=== PATIENT | male | born 1990 | race Hispanic/Latino ===

== ENCOUNTER 2020-11-20 10:56 | Day surgery (SDC) | payer BC, MEDICAID ==
[2020-11-20] VITALS (10 sets, daily range): BP systolic 107–129; BP diastolic 59–76
[2020-11-20 11:22] LABS: BASOPHILS % (AUTO) 0.3 % (0.0-5.0); EOSINOPHILS % (AUTO) 0.5 % (0.0-8.0); HEMATOCRIT 40.3 % (42-54); LYMPHOCYTES % (AUTO) 27.9 % (21.0-51.0); MEAN CORPUSCULAR HEMOGLOBIN 27.6 pg (27.0-33.0); MEAN CORPUSCULAR VOLUME 86.3 fL (79-99); MONOCYTES % (AUTO) 11.2 % (3.0-13.0); NEUTROPHILS % (AUTO) 59.8 % (40.0-77.0); PLATELET COUNT (AUTO) 311 K/uL (130-400); RED BLOOD CELL COUNT(AUTO) 4.67 MIL/uL (4.50-6.20); RED CELL DISTRIBUTION WIDTH 15.9 % (11.0-15.5); WHITE BLOOD COUNT (AUTO) 10.3 K/uL (4.8-10.8)
[2020-11-20 11:30] LABS: CREATININE 0.6 mg/dL (0.5-1.5); POTASSIUM 3.9 mmol/L (3.5-5.1)
[2020-11-20 11:33] LABS: INR 1.11 (0.85-1.15)
[2020-11-20] MEDS ORDERED: PROPOFOL 10 MG/ML 20ML VIAL IV ONE (11:34)
== END 2020-11-20 13:10 | disposition home or self-care (01) ==
LOC: DAH 10:56 → ENDO 10:56
PROVIDERS: ATTEND Internal Medicine Gastroenterology
DX: R13.12 Dysphagia, oropharyngeal phase (principal); Z20.822 Contact with and (suspected) exposure to COVID-19; K21.00 Gastro-esophageal reflux disease with esophagitis, without bleeding; K25.4 Chronic or unspecified gastric ulcer with hemorrhage; K92.1 Melena; R63.4 Abnormal weight loss; R19.4 Change in bowel habit; Z79.01 Long term (current) use of anticoagulants; Z83.3 Family history of diabetes mellitus; Z82.49 Family history of ischemic heart disease and other diseases of the circulatory system; Z80.49 Family history of malignant neoplasm of other genital organs; Z80.0 Family history of malignant neoplasm of digestive organs; Z83.49 Family history of other endocrine, nutritional and metabolic diseases; Z79.899 Other long term (current) drug therapy
CPT/HCPCS: 36415; 43246; 43255; 80048; 85025; 85610; 87426; A4215; A4221; A4222; A4223; A4606; A4620; A4657 ×2; A4663; J2704

== ENCOUNTER 2021-03-19 15:52 | Inpatient (IN) | payer BC, MEDICAID ==
[~2021-03-19] VITALS: Ht 167.6 cm; Wt 44.7 kg
[2021-03-19 16:08] LABS: BASOPHILS % (AUTO) 0.1 % (0.0-5.0); HEMATOCRIT 39.2 % (42-54); LYMPHOCYTES % (AUTO) 2.5 % (21.0-51.0); MEAN CORPUSCULAR HGB CONC 31.6 g/dL (32.0-36.0); MEAN CORPUSCULAR VOLUME 88.5 fL (79-99); MONOCYTES % (AUTO) 7.4 % (3.0-13.0); NEUTROPHILS % (AUTO) 89.5 % (40.0-77.0); PLATELET COUNT (AUTO) 349 K/uL (130-400); RED BLOOD CELL COUNT(AUTO) 4.43 MIL/uL (4.50-6.20); RED CELL DISTRIBUTION WIDTH 16.3 % (11.0-15.5); WHITE BLOOD COUNT (AUTO) 27.3 K/uL (4.8-10.8)
[2021-03-19 16:12] VITALS: BP 102/81
[2021-03-19 16:18] LABS: CREATININE 0.5 mg/dL (0.5-1.5)
[2021-03-19 16:23] LABS: ALBUMIN 2.9 g/dL (3.5-5.0); BILIRUBIN,TOTAL 0.6 mg/dL (0.2-1.0); TOTAL PROTEIN, SERUM 8.2 g/dL (6.0-8.3)
[2021-03-19 16:26] LABS: INR 1.23 (0.85-1.15); PROTHROMBIN TIME 13.2 SEC (9.6-11.6)
[2021-03-19 16:57] LABS: BILIRUBIN,URINE Negative (NEGATIVE); GLUCOSE, URINE (UA) Negative (NEGATIVE); KETONES,URINE Trace mg/dL (NEGATIVE); LEUKOCYTE ESTERASE ,URINE Small (NEGATIVE); NITRATE,URINE Negative (NEGATIVE); OCCULT BLOOD,URINE Negative (NEGATIVE); PH,URINE 7.5 (5.0-8.0); PROTEIN,URINE Trace mg/dL (NEGATIVE)
[2021-03-19 16:59] LABS: APPEARANCE,URINE CLEAR (CLEAR); COLOR,URINE YELLOW (YELLOW)
[2021-03-19] MEDS ORDERED: 0.9%NACL 1000ML 1,914 ML IV ONE (17:00)
[2021-03-19] MEDS ORDERED: ZOSYN 3.375GM +NS 50ML IV ONE (17:00)
[2021-03-19] MEDS ORDERED: 0.9%NACL 50ML IV ONE (17:00)
[2021-03-19] MEDS ORDERED: KETOROLAC 30MG VIAL (30MG/ML) IV ONE (17:00)
[2021-03-19 17:09] LABS: BACTERIA,URINE Few /HPF (None Seen); RBC,URINE None Seen /HPF (0-1)
[2021-03-19 18:01] VITALS: BP 138/75
[2021-03-19] MEDS ORDERED: VANCOMYCIN PROTOCOL PER PHARMACY IV SCH (19:15)
[2021-03-19] MEDS ORDERED: VANCOMYCIN KIT 1 GM/250 ML IV.KIT IV ONE (19:30)
[2021-03-19] MEDS ORDERED: 0.9% NACL 250ML 250 ML IV ONE (19:30)
[2021-03-19] MEDS ORDERED: ZOSYN 3.375GM+NS 50ML 50 ML IV ONE (19:46)
[2021-03-19] MEDS: ZOSYN 3.375GM +NS 50ML IV SCH (19:55)
[2021-03-19] MEDS: 0.9%NACL 50ML 50 ML IV SCH (19:56)
[2021-03-19] MEDS ORDERED: ACETAMINOPHEN 325 MG TAB PO PRN (20:45)
[2021-03-19] MEDS ORDERED: ONDANSETRON 4MG INJ IV PRN (20:45)
[2021-03-19] MEDS ORDERED: GUAIFENESIN-DM 200/20 MG 10 ML PO PRN (20:45)
[2021-03-19] MEDS ORDERED: LACTULOSE 20 GM/30 ML UDCUP PO PRN (20:45)
[2021-03-19 20:53] VITALS: BP 93/54
[2021-03-19] MEDS: FAMOTIDINE 20MG VIAL IV SCH (21:07)
[2021-03-19] MEDS ORDERED: DIPHENHYDRAMINE HCL 25 MG CAPSULE PEG PRN (22:15)
[2021-03-19] MEDS ORDERED: METO5 PEG (22:32)
[2021-03-19] MEDS ORDERED: PROP50TA3 PEG (22:32)
[2021-03-19] MEDS ORDERED: HYDR10SY9 PEG (22:32)
[2021-03-19] MEDS ORDERED: IPRA3AMP24 IH (22:32)
[2021-03-19] MEDS ORDERED: DIPH25TA51 PEG (22:32)
[2021-03-19] MEDS ORDERED: BUDE0.255 IH (22:32)
[2021-03-19] MEDS ORDERED: ACET1030H PO (22:32)
[2021-03-19] MEDS ORDERED: MONT10TA21 PEG (22:32)
[2021-03-19] MEDS ORDERED: ALBU2.5V2 IH (22:32)
[2021-03-19] MEDS ORDERED: VALP250S5 PEG (22:32)
[2021-03-19 22:48] VITALS: BP 149/76
[2021-03-20] VITALS (7 sets, daily range): BP systolic 101–129; BP diastolic 45–87
[2021-03-20] MEDS: IPRATROPIUM/ALBUTEROL SULFATE 3 ML SOLUTION IH SCH ×4 (00:10→19:15)
[2021-03-20] MEDS: 0.9%NACL 100ML 100 ML IV SCH ×2 (02:59→11:06)
[2021-03-20] MEDS: VANCOMYCIN 500MG+NS 100ML IVPB IV SCH ×3 (02:59→17:46)
[2021-03-20] MEDS: ZOSYN 3.375GM +NS 50ML IV SCH ×3 (05:18→20:11)
[2021-03-20] MEDS: 0.9%NACL 50ML 50 ML IV SCH ×3 (05:18→20:11)
[2021-03-20] MEDS: BUDESONIDE 0.25 MG/2 ML INH IH SCH (07:36)
[2021-03-20 07:44] LABS: HEMATOCRIT 34.1 % (42-54); MEAN CORPUSCULAR HEMOGLOBIN 27.6 pg (27.0-33.0); MEAN CORPUSCULAR HGB CONC 30.8 g/dL (32.0-36.0); MEAN CORPUSCULAR VOLUME 89.7 fL (79-99); PLATELET COUNT (AUTO) 268 K/uL (130-400); RED CELL DISTRIBUTION WIDTH 16.2 % (11.0-15.5); WHITE BLOOD COUNT (AUTO) 14.2 K/uL (4.8-10.8)
[2021-03-20 07:58] LABS: CREATININE 0.5 mg/dL (0.5-1.5); POTASSIUM 3.7 mmol/L (3.5-5.1)
[2021-03-20] MEDS: ENOXAPARIN SODIUM 40 MG/0.4 ML SYRINGE SQ SCH (08:42)
[2021-03-20] MEDS: FAMOTIDINE 20MG VIAL IV SCH ×2 (08:43→20:11)
[2021-03-20] MEDS: METOCLOPRAMIDE 5 MG TABLET PEG SCH ×2 (08:43→20:11)
[2021-03-20] MEDS: MUPIROCIN OINTMENT 22 GM TUBE TP SCH ×2 (08:43→21:01)
[2021-03-20] MEDS: VALPROATE SOD 250 MG/5 ML (PO) PEG SCH ×2 (08:43→20:11)
[2021-03-20] MEDS: PROPYLTHIOURACIL 50 MG TABLET PEG SCH (08:46)
[2021-03-20] MEDS: MONTELUKAST SODIUM 10 MG TAB PEG SCH (20:11)
[2021-03-21 00:54] VITALS: BP 122/70
[2021-03-21] MEDS: IPRATROPIUM/ALBUTEROL SULFATE 3 ML SOLUTION IH SCH ×5 (01:03→23:31)
[2021-03-21] MEDS: 0.9%NACL 100ML 100 ML IV SCH ×2 (01:36→10:33)
[2021-03-21] MEDS: VANCOMYCIN 500MG+NS 100ML IVPB IV SCH ×2 (01:36→10:30)
[2021-03-21] MEDS ORDERED: 0.9%NACL 1000ML 1,000 ML IV SCH (01:45)
[2021-03-21 04:06] VITALS: BP 136/58
[2021-03-21] MEDS: 0.9%NACL 50ML 50 ML IV SCH ×3 (04:07→22:59)
[2021-03-21] MEDS: ZOSYN 3.375GM +NS 50ML IV SCH ×3 (04:07→22:59)
[2021-03-21] MEDS: MORPHINE 2 MG SYG IV PRN ×2 (04:08→21:29)
[2021-03-21 06:41] LABS: % IRON SATURATION 9.3 % (30-44); BASOPHILS % (AUTO) 0.1 % (0.0-5.0); EOSINOPHILS % (AUTO) 0.7 % (0.0-8.0); HEMATOCRIT 36.1 % (42-54); LYMPHOCYTES % (AUTO) 17.1 % (21.0-51.0); MEAN CORPUSCULAR HEMOGLOBIN 27.3 pg (27.0-33.0); MEAN CORPUSCULAR HGB CONC 31.6 g/dL (32.0-36.0); MEAN CORPUSCULAR VOLUME 86.4 fL (79-99); MONOCYTES % (AUTO) 13.1 % (3.0-13.0); NEUTROPHILS % (AUTO) 68.6 % (40.0-77.0); PLATELET COUNT (AUTO) 306 K/uL (130-400); RED BLOOD CELL COUNT(AUTO) 4.18 MIL/uL (4.50-6.20); RED CELL DISTRIBUTION WIDTH 15.8 % (11.0-15.5); WHITE BLOOD COUNT (AUTO) 9.6 K/uL (4.8-10.8)
[2021-03-21 07:07] LABS: CREATININE 0.5 mg/dL (0.5-1.5); MAGNESIUM 1.8 mg/dL (1.80-2.40); PHOSPHORUS 3.3 mg/dL (2.5-4.9); POTASSIUM 3.5 mmol/L (3.5-5.1); THYROID STIMULATING HORMONE 2.21 uIU/mL (0.36-3.74)
[2021-03-21 07:30] VITALS: BP 109/66
[2021-03-21] MEDS: PROPYLTHIOURACIL 50 MG TABLET PEG SCH (08:52)
[2021-03-21] MEDS: METOCLOPRAMIDE 5 MG TABLET PEG SCH ×2 (08:57→21:21)
[2021-03-21] MEDS: ENOXAPARIN SODIUM 40 MG/0.4 ML SYRINGE SQ SCH (08:58)
[2021-03-21] MEDS: VALPROATE SOD 250 MG/5 ML (PO) PEG SCH ×2 (08:59→21:21)
[2021-03-21] MEDS: MUPIROCIN OINTMENT 22 GM TUBE TP SCH ×2 (08:59→21:22)
[2021-03-21] MEDS: FAMOTIDINE 20MG VIAL IV SCH ×2 (09:00→21:21)
[2021-03-21] MEDS ORDERED: COMPOUND IV MISC 1 EACH IVSOLN MISC PRN (10:15)
[2021-03-21 11:00] VITALS: BP 115/72
[2021-03-21] MEDS: IRON SUCROSE COMPLEX 300 MG in 0.9%NACL 50ML 50 ML IV SCH (12:07)
[2021-03-21 16:00] VITALS: BP 118/79
[2021-03-21 19:00] VITALS: BP 124/77
[2021-03-21] MEDS: 0.9% NACL 250ML 250 ML IV SCH (21:21)
[2021-03-21] MEDS: MONTELUKAST SODIUM 10 MG TAB PEG SCH (21:21)
[2021-03-21] MEDS: VANCOMYCIN KIT 1 GM/250 ML IV.KIT IV SCH (21:21)
[2021-03-21] MEDS: BUDESONIDE 0.25 MG/2 ML INH IH SCH (23:36)
[2021-03-22] VITALS: BP 112/70
[2021-03-22 04:00] VITALS: BP 118/67
[2021-03-22] MEDS: MORPHINE 2 MG SYG IV PRN (04:05)
[2021-03-22] MEDS: 0.9%NACL 50ML 50 ML IV SCH (05:00)
[2021-03-22 05:12] LABS: BASOPHILS % (AUTO) 0.2 % (0.0-5.0); EOSINOPHILS % (AUTO) 0.1 % (0.0-8.0); HEMATOCRIT 40.8 % (42-54); LYMPHOCYTES % (AUTO) 17.7 % (21.0-51.0); MEAN CORPUSCULAR HEMOGLOBIN 27.8 pg (27.0-33.0); MEAN CORPUSCULAR HGB CONC 31.6 g/dL (32.0-36.0); MEAN CORPUSCULAR VOLUME 87.9 fL (79-99); MONOCYTES % (AUTO) 12.8 % (3.0-13.0); NEUTROPHILS % (AUTO) 68.8 % (40.0-77.0); PLATELET COUNT (AUTO) 283 K/uL (130-400); RED BLOOD CELL COUNT(AUTO) 4.64 MIL/uL (4.50-6.20); RED CELL DISTRIBUTION WIDTH 16.1 % (11.0-15.5); WHITE BLOOD COUNT (AUTO) 9.3 K/uL (4.8-10.8)
[2021-03-22 05:26] LABS: CREATININE 0.5 mg/dL (0.5-1.5); POTASSIUM 4.1 mmol/L (3.5-5.1)
[2021-03-22] MEDS: ZOSYN 3.375GM +NS 50ML IV SCH (06:01)
[2021-03-22] MEDS: IPRATROPIUM/ALBUTEROL SULFATE 3 ML SOLUTION IH SCH ×2 (06:48→11:43)
[2021-03-22 07:30] VITALS: BP 128/59
[2021-03-22] MEDS: 0.9% NACL 250ML 250 ML IV SCH (08:00)
[2021-03-22] MEDS: VANCOMYCIN KIT 1 GM/250 ML IV.KIT IV SCH (08:00)
[2021-03-22] MEDS ORDERED: LEVO250S3 PO (10:39)
[2021-03-22 11:00] VITALS: BP 110/64
[2021-03-22] MEDS: VALPROATE SOD 250 MG/5 ML (PO) PEG SCH (11:39)
[2021-03-22] MEDS: ENOXAPARIN SODIUM 40 MG/0.4 ML SYRINGE SQ SCH (11:40)
[2021-03-22] MEDS: PROPYLTHIOURACIL 50 MG TABLET PEG SCH (11:40)
[2021-03-22] MEDS: MUPIROCIN OINTMENT 22 GM TUBE TP SCH (11:41)
[2021-03-22] MEDS: METOCLOPRAMIDE 5 MG TABLET PEG SCH (11:41)
[2021-03-22] MEDS: FAMOTIDINE 20MG VIAL IV SCH (11:42)
[2021-03-22] MEDS: IRON SUCROSE COMPLEX 300 MG in 0.9%NACL 50ML 50 ML IV SCH (11:42)
[2021-10-04] MEDS ORDERED: TRYPSIN TP (16:15)
[2021-10-04] MEDS ORDERED: BACL5TAB PO (16:15)
[2021-10-04] MEDS ORDERED: BALSAM PERU TP (16:15)
[2021-10-04] MEDS ORDERED: CASTOR OIL TP (16:15)
[2021-10-04] MEDS ORDERED: METO50TA9 PO (16:15)
[2021-10-04] MEDS ORDERED: LEVE500S7 PEG (16:15)
== END 2021-03-22 16:00 | disposition home or self-care (01) | DRG 871 ==
LOC: EDH 15:52 → EDHIP 18:52 → 3DH 03-20 04:01
PROVIDERS: ADMIT Internal Medicine; ATTEND Internal Medicine
DX: A41.50 Gram-negative sepsis, unspecified (principal); J18.9 Pneumonia, unspecified organism; J69.0 Pneumonitis due to inhalation of food and vomit; G93.1 Anoxic brain damage, not elsewhere classified; J96.11 Chronic respiratory failure with hypoxia; Z68.1 Body mass index [BMI] 19.9 or less, adult; E44.0 Moderate protein-calorie malnutrition; D50.9 Iron deficiency anemia, unspecified; E03.9 Hypothyroidism, unspecified; R13.12 Dysphagia, oropharyngeal phase; L89.129 Pressure ulcer of left upper back, unspecified stage; Z20.822 Contact with and (suspected) exposure to COVID-19; Z74.01 Bed confinement status; Z87.01 Personal history of pneumonia (recurrent); Z93.0 Tracheostomy status; Z93.1 Gastrostomy status; Z86.69 Personal history of other diseases of the nervous system and sense organs
CPT/HCPCS: 36415; 71045; 73060; 80048; 80053; 80202; 81001; 82607; 82728; 82746; 83540; 83550; 83605; 83735; 84100; 84145; 84443; 85025; 85027; 85045; 85610; 87040; 87070; 87071; 87076; 87077; 87088; 87186; 87205; 87635; 87804; 87880; 93005; 94640; 94664; C9803; G0378; J1650; J1756; J1885; J2543; J3370; J3490; J7030; J7050

== ENCOUNTER 2021-06-24 13:19 | Inpatient (IN) | payer BC, MEDICAID ==
[~2021-06-24] VITALS: Ht 188 cm; Wt 58.0 kg
[~2021-06-24 13:19] MED LIST: ACET1030H PO; ALBU2.5V2 IH; BUDE0.255 IH; DIPH25TA51 PEG; HYDR10SY9 PEG; IPRA3AMP24 IH; LEVO250S3 PO; METO5 PEG; MONT10TA21 PEG; PROP50TA3 PEG; VALP250S5 PEG
[2021-06-24 13:31] VITALS: BP 129/65
[2021-06-24] MEDS ORDERED: FAMOTIDINE 20MG VIAL IV STA (13:39)
[2021-06-24] MEDS ORDERED: LACTATED RINGERS 1000ML 1,000 ML IV ONE (14:00)
[2021-06-24 14:54] LABS: BASOPHILS % (AUTO) 0.2 % (0.0-5.0); HEMATOCRIT 50.6 % (42-54); LYMPHOCYTES % (AUTO) 3.3 % (21.0-51.0); MEAN CORPUSCULAR HEMOGLOBIN 27.8 pg (27.0-33.0); MEAN CORPUSCULAR HGB CONC 32.4 g/dL (32.0-36.0); MEAN CORPUSCULAR VOLUME 85.9 fL (79-99); MONOCYTES % (AUTO) 5.5 % (3.0-13.0); NEUTROPHILS % (AUTO) 90.4 % (40.0-77.0); PLATELET COUNT (AUTO) 263 K/uL (130-400); RED BLOOD CELL COUNT(AUTO) 5.89 MIL/uL (4.50-6.20); RED CELL DISTRIBUTION WIDTH 16.9 % (11.0-15.5)
[2021-06-24 14:55] VITALS: BP 121/71
[2021-06-24 15:00] LABS: ALBUMIN 3.1 g/dL (3.5-5.0); BILIRUBIN,TOTAL 0.7 mg/dL (0.2-1.0); CREATININE 0.6 mg/dL (0.5-1.5); POTASSIUM 4.7 mmol/L (3.5-5.1); TOTAL PROTEIN, SERUM 8.7 g/dL (6.0-8.3)
[2021-06-24] MEDS ORDERED: DIATR MEGLU/DIATRIZOATE SODIUM 30 ML BOTTLE ONE (15:53)
[2021-06-24] MEDS ORDERED: ZOSYN 3.375GM +NS 50ML IV ONE (16:30)
[2021-06-24] MEDS ORDERED: 0.9%NACL 50ML 50 ML IV ONE (16:30)
[2021-06-24] MEDS ORDERED: DiphenhydrAMINE HCL 50 MG/ML VIAL ONE (16:58)
[2021-06-24] MEDS ORDERED: FAMOTIDINE 20MG VIAL IV ONE ×2 (16:59→17:00)
[2021-06-24] MEDS ORDERED: DiphenhydrAMINE HCL 50 MG/ML VIAL IV ONE (17:00)
[2021-06-24] MEDS ORDERED: VANCOMYCIN PROTOCOL PER PHARMACY IV SCH (17:30)
[2021-06-24] MEDS ORDERED: PHARMACY COMMUNICATION MISC SCH (17:30)
[2021-06-24] MEDS ORDERED: LEVOFLOXACIN 500 MG/D5W 100 ML 100 ML IV SCH (17:30)
[2021-06-24 17:57] LABS: CRP QUANTITATIVE 37.8 mg/L (0.00-9.0)
[2021-06-24] MEDS ORDERED: ONDANSETRON 4MG INJ IVP PRN (18:00)
[2021-06-24] MEDS ORDERED: ACETYLCYSTEINE 10% 100MG/ML 4ML VIAL IH ONE (18:00)
[2021-06-24] MEDS: LACTATED RINGERS 1000ML 1,000 ML IV SCH (18:30)
[2021-06-24] MEDS ORDERED: COMPOUND IV MISC 1 EACH IVSOLN MISC PRN (18:30)
[2021-06-24] MEDS ORDERED: ACETYLCYSTEINE 10% 100MG/ML 4ML VIAL ONE (19:43)
[2021-06-24 20:02] VITALS: BP 121/76
[2021-06-24] MEDS: IPRATROPIUM 0.5 MG/2.5 ML INH IH SCH ×2 (20:12→23:42)
[2021-06-24] MEDS: BUDESONIDE 0.5 MG/2 ML INH IH SCH (20:48)
[2021-06-24] MEDS ORDERED: VANCOMYCIN 1.25GM/NS 250ML IVPB ONE ×2 (21:00)
[2021-06-24] MEDS: [UNRECOGNIZED DRUG - OTHER] IV SCH (21:43)
[2021-06-24] MEDS: VALPROIC ACID IV SCH (21:43)
[2021-06-24] MEDS: ACETAMINOPHEN 650 MG SUPPOSITORY RC PRN (22:18)
[2021-06-24] MEDS ORDERED: ACETAMINOPHEN 650 MG SUPPOSITORY RC ONE (22:18)
[2021-06-24] MEDS ORDERED: ACETAMINOPHEN 325 MG SUPPOSITORY RC PRN ×2 (22:30)
[2021-06-24 22:49] LABS: APPEARANCE,URINE Clear (CLEAR); BILIRUBIN,URINE Negative (NEGATIVE); COLOR,URINE Dark Yellow (YELLOW); GLUCOSE, URINE (UA) Negative (NEGATIVE); KETONES,URINE 40 mg/dL (NEGATIVE); LEUKOCYTE ESTERASE ,URINE Small (NEGATIVE); NITRATE,URINE Negative (NEGATIVE); OCCULT BLOOD,URINE Small (NEGATIVE); PH,URINE 6.5 (5.0-8.0); PROTEIN,URINE POS 1+ mg/dL (NEGATIVE)
[2021-06-24 23:05] LABS: BACTERIA,URINE Few /HPF (None Seen); MUCUS,URINE Few LPF (None Seen)
[2021-06-24] MEDS ORDERED: ACETAMINOPHEN 650 MG SUPPOSITORY RC PRN (23:45)
[2021-06-25] VITALS (9 sets, daily range): BP systolic 110–152; BP diastolic 63–93
[2021-06-25] MEDS: METRONIDAZOLE 500MG/100ML BAG 100 ML IVPB SCH ×4 (00:07→21:58)
[2021-06-25] MEDS ORDERED: DiphenhydrAMINE HCL 50 MG/ML VIAL ONE (00:19)
[2021-06-25] MEDS ORDERED: DiphenhydrAMINE HCL 50 MG/ML VIAL IM PRN (00:30)
[2021-06-25] MEDS: LACTATED RINGERS 1000ML 1,000 ML IV SCH ×3 (01:30→18:17)
[2021-06-25] MEDS: ACETAMINOPHEN 650 MG SUPPOSITORY RC PRN (02:23)
[2021-06-25] MEDS ORDERED: 0.9% NACL 250ML 250 ML IV SCH (05:00)
[2021-06-25] MEDS ORDERED: VANCOMYCIN KIT 1 GM/250 ML IV.KIT IV SCH (05:00)
[2021-06-25] MEDS: IPRATROPIUM 0.5 MG/2.5 ML INH IH SCH ×3 (07:34→19:22)
[2021-06-25] MEDS: BUDESONIDE 0.5 MG/2 ML INH IH SCH ×2 (07:34→19:25)
[2021-06-25 07:51] LABS: AMYLASE 750 U/L (25-115); LIPASE 850 U/L (114-286)
[2021-06-25 08:14] LABS: BASOPHILS % (AUTO) 0.2 % (0.0-5.0); HEMATOCRIT 49.1 % (42-54); LYMPHOCYTES % (AUTO) 3.4 % (21.0-51.0); MEAN CORPUSCULAR HEMOGLOBIN 28.5 pg (27.0-33.0); MEAN CORPUSCULAR VOLUME 86.4 fL (79-99); MONOCYTES % (AUTO) 7.8 % (3.0-13.0); PLATELET COUNT (AUTO) 219 K/uL (130-400); RED BLOOD CELL COUNT(AUTO) 5.68 MIL/uL (4.50-6.20); RED CELL DISTRIBUTION WIDTH 17.6 % (11.0-15.5)
[2021-06-25 08:29] LABS: ALBUMIN 2.7 g/dL (3.5-5.0); CREATININE 0.9 mg/dL (0.5-1.5); POTASSIUM 4.6 mmol/L (3.5-5.1); TOTAL PROTEIN, SERUM 8.1 g/dL (6.0-8.3)
[2021-06-25] MEDS: [UNRECOGNIZED DRUG - OTHER] IV SCH ×2 (09:00→20:45)
[2021-06-25] MEDS: VALPROIC ACID IV SCH ×2 (09:00→20:45)
[2021-06-25] MEDS: FAMOTIDINE 20MG VIAL IV SCH ×2 (09:00→20:01)
[2021-06-25 09:05] LABS: BAND NEUTROPHILS % (MANUAL) 4 % (0-2); LYMPHOCYTES % (MANUAL) 2 % (22-44); MONOCYTES % (MANUAL) 2 % (2-9); SEGMENTED NEUTROPHILS % 92 % (40-70)
[2021-06-25 09:06] LABS: MAN.DIFF COMMENT-IMPRESSION MANUAL DIFFERENTIAL
[2021-06-25 09:07] LABS: PLATELET MORPHOLOGY COMMENT ADEQUATE
[2021-06-25] MEDS ORDERED: LINEZOLID 600 MG/ISO-OSM 300 ML IV SCH (10:30)
[2021-06-25] MEDS ORDERED: AZTREONAM 2 GM VIAL IVP SCH (10:30)
[2021-06-25] MEDS ORDERED: FERR324T9 PO (15:58)
[2021-06-25] MEDS ORDERED: FOLI0.8T2 PO (16:02)
[2021-06-25] MEDS ORDERED: CALC1SOL2 PEG (16:02)
[2021-06-25] MEDS ORDERED: FOLI1 PO (16:02)
[2021-06-25] MEDS ORDERED: VIT C PEG (16:09)
[2021-06-25] MEDS ORDERED: ACET1030H IH (16:09)
[2021-06-25] MEDS ORDERED: TYL3B PO (16:14)
[2021-06-25] MEDS ORDERED: OMEP20CA12 PO (16:14)
[2021-06-25] MEDS ORDERED: ZINC TP (16:22)
[2021-06-25] MEDS ORDERED: NYST15CR2 TP (16:22)
[2021-06-25] MEDS ORDERED: CETI-89 PEG (16:22)
[2021-06-25] MEDS: LEVOFLOXACIN 500 MG/D5W 100 ML 100 ML IV SCH (20:01)
[2021-06-25] MEDS: LINEZOLID 600 MG/ISO-OSM 300 ML IV SCH (20:44)
[2021-06-25] MEDS: AZTREONAM 2 GM VIAL IVP SCH (21:58)
[2021-06-25] MEDS ORDERED: LORAZEPAM 2 MG/ML 1 ML VIAL ONE (23:21)
[2021-06-25] MEDS ORDERED: LORAZEPAM 2 MG/ML 1 ML VIAL IVP ONE (23:30)
[2021-06-26 00:20] VITALS: BP 122/86
[2021-06-26] MEDS: IPRATROPIUM 0.5 MG/2.5 ML INH IH SCH ×5 (00:31→23:23)
[2021-06-26 00:36] LABS: BASOPHILS % (AUTO) 0.2 % (0.0-5.0); EOSINOPHILS % (AUTO) 0.1 % (0.0-8.0); HEMATOCRIT 41.8 % (42-54); LYMPHOCYTES % (AUTO) 3.9 % (21.0-51.0); MEAN CORPUSCULAR HEMOGLOBIN 28.5 pg (27.0-33.0); MEAN CORPUSCULAR HGB CONC 32.5 g/dL (32.0-36.0); MEAN CORPUSCULAR VOLUME 87.4 fL (79-99); MONOCYTES % (AUTO) 7.1 % (3.0-13.0); NEUTROPHILS % (AUTO) 88.1 % (40.0-77.0); PLATELET COUNT (AUTO) 184 K/uL (130-400); RED BLOOD CELL COUNT(AUTO) 4.78 MIL/uL (4.50-6.20); RED CELL DISTRIBUTION WIDTH 16.5 % (11.0-15.5)
[2021-06-26 00:48] LABS: WHITE BLOOD COUNT (AUTO) 32.2 K/uL (4.8-10.8)
[2021-06-26] MEDS: LACTATED RINGERS 1000ML 1,000 ML IV SCH ×3 (00:57→09:30)
[2021-06-26 04:03] VITALS: BP 125/66
[2021-06-26] MEDS: METRONIDAZOLE 500MG/100ML BAG 100 ML IVPB SCH ×3 (04:53→21:44)
[2021-06-26] MEDS: AZTREONAM 2 GM VIAL IVP SCH ×3 (04:53→21:45)
[2021-06-26 06:09] LABS: CREATININE 0.2 mg/dL (0.5-1.5); POTASSIUM 4.9 mmol/L (3.5-5.1)
[2021-06-26 06:31] LABS: ALBUMIN 2.1 g/dL (3.5-5.0); BILIRUBIN,TOTAL 1.2 mg/dL (0.2-1.0); TOTAL PROTEIN, SERUM 6.1 g/dL (6.0-8.3)
[2021-06-26 06:43] LABS: CRP QUANTITATIVE 207.9 mg/L (0.00-9.0)
[2021-06-26] MEDS: BUDESONIDE 0.5 MG/2 ML INH IH SCH ×2 (07:05→19:08)
[2021-06-26 07:11] LABS: AMYLASE 390 U/L (25-115); LIPASE 161 U/L (114-286)
[2021-06-26 08:00] VITALS: BP 132/82
[2021-06-26] MEDS ORDERED: Vitamin B Complex/Vit C/Folic Acid PO SCH (09:30)
[2021-06-26] MEDS ORDERED: ZINC OXIDE OINT 60GM TUBE TP PRN (09:30)
[2021-06-26] MEDS ORDERED: DIPHENHYDRAMINE HCL 25 MG CAPSULE PEG PRN (09:30)
[2021-06-26] MEDS ORDERED: FERROUS FUMARATE 324 MG TABLET PEG SCH (09:30)
[2021-06-26] MEDS ORDERED: CETIRIZINE HCL 5 MG TABLET PO PRN (09:30)
[2021-06-26] MEDS ORDERED: NYSTATIN-TRIAMCINOLONE CREAM 15 GM TP PRN ×2 (09:30→10:00)
[2021-06-26] MEDS: LINEZOLID 600 MG/ISO-OSM 300 ML IV SCH ×2 (09:33→21:45)
[2021-06-26] MEDS: FAMOTIDINE 20MG VIAL IV SCH ×2 (09:33→21:45)
[2021-06-26] MEDS: [UNRECOGNIZED DRUG - OTHER] IV SCH ×2 (09:33→21:47)
[2021-06-26] MEDS: VALPROIC ACID IV SCH ×2 (09:33→21:47)
[2021-06-26 12:00] VITALS: BP 136/83
[2021-06-26] MEDS ORDERED: DEXTROSE 50%-WATER 50 ML DISP.SYRIN IV ONE (12:02)
[2021-06-26] MEDS: HYDROXYZINE HCL 10MG/5ML SYRUP 5ML BOTTLE PEG SCH ×2 (12:36→17:31)
[2021-06-26] MEDS: ENOXAPARIN SODIUM 30 MG/0.3 ML SQ SCH (12:36)
[2021-06-26 16:00] VITALS: BP 128/78
[2021-06-26] MEDS: PROPYLTHIOURACIL 50 MG TABLET PEG SCH (17:31)
[2021-06-26 20:15] VITALS: BP 150/91
[2021-06-26] MEDS: MONTELUKAST SODIUM 10 MG TAB PEG SCH (21:45)
[2021-06-26] MEDS: METOCLOPRAMIDE 5 MG TABLET PEG SCH (21:45)
[2021-06-27] VITALS: BP 126/79
[2021-06-27] MEDS: HYDROXYZINE HCL 10MG/5ML SYRUP 5ML BOTTLE PEG SCH ×3 (01:18→17:10)
[2021-06-27] MEDS: LEVOFLOXACIN 500 MG/D5W 100 ML 100 ML IV SCH (01:18)
[2021-06-27 03:36] VITALS: BP 126/84
[2021-06-27] MEDS: METRONIDAZOLE 500MG/100ML BAG 100 ML IVPB SCH ×3 (04:42→22:53)
[2021-06-27] MEDS: AZTREONAM 2 GM VIAL IVP SCH ×3 (04:42→23:17)
[2021-06-27] MEDS: LACTATED RINGERS 1000ML 1,000 ML IV SCH ×2 (04:44→14:08)
[2021-06-27 05:24] LABS: BASOPHILS % (AUTO) 0.2 % (0.0-5.0); EOSINOPHILS % (AUTO) 0.1 % (0.0-8.0); LYMPHOCYTES % (AUTO) 6.2 % (21.0-51.0); MEAN CORPUSCULAR HEMOGLOBIN 28.5 pg (27.0-33.0); MEAN CORPUSCULAR HGB CONC 32.9 g/dL (32.0-36.0); MEAN CORPUSCULAR VOLUME 86.8 fL (79-99); MONOCYTES % (AUTO) 8.9 % (3.0-13.0); NEUTROPHILS % (AUTO) 84.1 % (40.0-77.0); PLATELET COUNT (AUTO) 181 K/uL (130-400); RED BLOOD CELL COUNT(AUTO) 4.38 MIL/uL (4.50-6.20); RED CELL DISTRIBUTION WIDTH 15.9 % (11.0-15.5); WHITE BLOOD COUNT (AUTO) 26.7 K/uL (4.8-10.8)
[2021-06-27 06:00] LABS: ALBUMIN 1.9 g/dL (3.5-5.0); BILIRUBIN,TOTAL 1.1 mg/dL (0.2-1.0); CREATININE 0.5 mg/dL (0.5-1.5); POTASSIUM 3.3 mmol/L (3.5-5.1); TOTAL PROTEIN, SERUM 6.1 g/dL (6.0-8.3)
[2021-06-27 06:33] LABS: CRP QUANTITATIVE 253.3 mg/L (0.00-9.0)
[2021-06-27 08:00] VITALS: BP 113/56
[2021-06-27] MEDS: IPRATROPIUM 0.5 MG/2.5 ML INH IH SCH ×4 (08:16→23:17)
[2021-06-27] MEDS: BUDESONIDE 0.5 MG/2 ML INH IH SCH ×2 (08:16→18:48)
[2021-06-27] MEDS ORDERED: PROPYLTHIOURACIL 50 MG TABLET PEG SCH (09:00)
[2021-06-27] MEDS: FAMOTIDINE 20MG VIAL IV SCH ×2 (09:49→22:54)
[2021-06-27] MEDS: METOCLOPRAMIDE 5 MG TABLET PEG SCH ×2 (09:49→21:54)
[2021-06-27] MEDS: PROPYLTHIOURACIL 50 MG TABLET PEG SCH (09:49)
[2021-06-27] MEDS: POTASSIUM CHLORIDE 10% ELIXIR 20 MEQ/15 ML UDCUP PO SCH (09:50)
[2021-06-27] MEDS: ENOXAPARIN SODIUM 30 MG/0.3 ML SQ SCH (09:50)
[2021-06-27] MEDS: LINEZOLID 600 MG/ISO-OSM 300 ML IV SCH (09:51)
[2021-06-27] MEDS: [UNRECOGNIZED DRUG - OTHER] IV SCH ×2 (10:37→21:30)
[2021-06-27] MEDS: VALPROIC ACID IV SCH ×2 (10:37→21:30)
[2021-06-27 11:46] VITALS: BP 112/73
[2021-06-27 16:00] VITALS: BP 114/62
[2021-06-27 20:41] VITALS: BP 110/71
[2021-06-27] MEDS: MONTELUKAST SODIUM 10 MG TAB PEG SCH (21:54)
[2021-06-28] MEDS: HYDROXYZINE HCL 10MG/5ML SYRUP 5ML BOTTLE PEG SCH ×3 (01:48→18:27)
[2021-06-28 04:17] VITALS: BP 118/74
[2021-06-28] MEDS: LACTATED RINGERS 1000ML 1,000 ML IV SCH (04:30)
[2021-06-28 04:53] LABS: BASOPHILS % (AUTO) 0.3 % (0.0-5.0); EOSINOPHILS % (AUTO) 0.1 % (0.0-8.0); HEMATOCRIT 36.5 % (42-54); LYMPHOCYTES % (AUTO) 15.4 % (21.0-51.0); MEAN CORPUSCULAR HGB CONC 32.1 g/dL (32.0-36.0); MEAN CORPUSCULAR VOLUME 87.3 fL (79-99); MONOCYTES % (AUTO) 11.3 % (3.0-13.0); NEUTROPHILS % (AUTO) 72.4 % (40.0-77.0); PLATELET COUNT (AUTO) 202 K/uL (130-400); RED BLOOD CELL COUNT(AUTO) 4.18 MIL/uL (4.50-6.20); RED CELL DISTRIBUTION WIDTH 15.6 % (11.0-15.5); WHITE BLOOD COUNT (AUTO) 14.9 K/uL (4.8-10.8)
[2021-06-28] MEDS: METRONIDAZOLE 500MG/100ML BAG 100 ML IVPB SCH ×3 (05:05→21:07)
[2021-06-28 05:15] LABS: ALBUMIN 1.9 g/dL (3.5-5.0); CREATININE 0.4 mg/dL (0.5-1.5); POTASSIUM 3.5 mmol/L (3.5-5.1); TOTAL PROTEIN, SERUM 5.8 g/dL (6.0-8.3)
[2021-06-28 05:36] LABS: CRP QUANTITATIVE 193.3 mg/L (0.00-9.0)
[2021-06-28] MEDS: IPRATROPIUM 0.5 MG/2.5 ML INH IH SCH ×4 (06:48→23:48)
[2021-06-28] MEDS: BUDESONIDE 0.5 MG/2 ML INH IH SCH ×2 (06:48→18:39)
[2021-06-28 08:00] VITALS: BP 100/70
[2021-06-28] MEDS: [UNRECOGNIZED DRUG - OTHER] IV SCH ×2 (09:31→22:09)
[2021-06-28] MEDS: ENOXAPARIN SODIUM 30 MG/0.3 ML SQ SCH (09:31)
[2021-06-28] MEDS: VALPROIC ACID IV SCH ×2 (09:31→22:09)
[2021-06-28] MEDS: PROPYLTHIOURACIL 50 MG TABLET PEG SCH (09:32)
[2021-06-28] MEDS: POTASSIUM CHLORIDE 10% ELIXIR 20 MEQ/15 ML UDCUP PO SCH (09:32)
[2021-06-28] MEDS: METOCLOPRAMIDE 5 MG TABLET PEG SCH ×2 (09:33→20:58)
[2021-06-28] MEDS: FAMOTIDINE 20MG VIAL IV SCH ×2 (09:33→20:58)
[2021-06-28] MEDS: AZTREONAM 2 GM VIAL IVP SCH ×3 (09:33→21:07)
[2021-06-28 11:56] VITALS: BP 102/69
[2021-06-28 16:00] VITALS: BP 116/77
[2021-06-28 20:12] VITALS: BP 111/65
[2021-06-28] MEDS: MONTELUKAST SODIUM 10 MG TAB PEG SCH (20:58)
[2021-06-28 23:39] VITALS: BP 109/58
[2021-06-29] MEDS: ACETAMINOPHEN WITH CODEINE 1 TAB TAB PO PRN (01:20)
[2021-06-29] MEDS: HYDROXYZINE HCL 10MG/5ML SYRUP 5ML BOTTLE PEG SCH ×3 (01:20→17:40)
[2021-06-29 03:59] VITALS: BP 114/52
[2021-06-29] MEDS: METRONIDAZOLE 500MG/100ML BAG 100 ML IVPB SCH ×3 (05:25→21:34)
[2021-06-29] MEDS: AZTREONAM 2 GM VIAL IVP SCH ×3 (05:25→21:34)
[2021-06-29] MEDS: BUDESONIDE 0.5 MG/2 ML INH IH SCH ×2 (06:14→18:27)
[2021-06-29] MEDS: IPRATROPIUM 0.5 MG/2.5 ML INH IH SCH ×3 (06:14→18:27)
[2021-06-29 06:32] LABS: BASOPHILS % (AUTO) 0.3 % (0.0-5.0); EOSINOPHILS % (AUTO) 1.1 % (0.0-8.0); HEMATOCRIT 35.7 % (42-54); LYMPHOCYTES % (AUTO) 23.1 % (21.0-51.0); MEAN CORPUSCULAR HEMOGLOBIN 28.1 pg (27.0-33.0); MEAN CORPUSCULAR HGB CONC 32.8 g/dL (32.0-36.0); MEAN CORPUSCULAR VOLUME 85.6 fL (79-99); MONOCYTES % (AUTO) 15.2 % (3.0-13.0); NEUTROPHILS % (AUTO) 59.7 % (40.0-77.0); PLATELET COUNT (AUTO) 241 K/uL (130-400); RED BLOOD CELL COUNT(AUTO) 4.17 MIL/uL (4.50-6.20); RED CELL DISTRIBUTION WIDTH 15.4 % (11.0-15.5); WHITE BLOOD COUNT (AUTO) 10.6 K/uL (4.8-10.8)
[2021-06-29 06:49] LABS: ALBUMIN 2.1 g/dL (3.5-5.0); BILIRUBIN,TOTAL 0.5 mg/dL (0.2-1.0); CREATININE 0.5 mg/dL (0.5-1.5); POTASSIUM 3.9 mmol/L (3.5-5.1); TOTAL PROTEIN, SERUM 6.3 g/dL (6.0-8.3)
[2021-06-29 07:44] VITALS: BP 151/79
[2021-06-29] MEDS: VALPROIC ACID IV SCH ×2 (09:51→20:04)
[2021-06-29] MEDS: [UNRECOGNIZED DRUG - OTHER] IV SCH ×2 (09:51→20:04)
[2021-06-29] MEDS: FAMOTIDINE 20MG VIAL IV SCH ×2 (09:52→20:04)
[2021-06-29] MEDS: LACTATED RINGERS 1000ML 1,000 ML IV SCH ×2 (09:56→21:43)
[2021-06-29] MEDS: POTASSIUM CHLORIDE 10% ELIXIR 20 MEQ/15 ML UDCUP PO SCH (10:03)
[2021-06-29] MEDS: PROPYLTHIOURACIL 50 MG TABLET PEG SCH (10:04)
[2021-06-29] MEDS: METOCLOPRAMIDE 5 MG TABLET PEG SCH ×2 (10:04→20:03)
[2021-06-29] MEDS: ENOXAPARIN SODIUM 30 MG/0.3 ML SQ SCH (10:05)
[2021-06-29 11:55] VITALS: BP 142/47
[2021-06-29 16:21] VITALS: BP 132/66
[2021-06-29] MEDS: ACETAMINOPHEN 650 MG/20.3 ML UDCUP PEG PRN (17:49)
[2021-06-29] MEDS: MONTELUKAST SODIUM 10 MG TAB PEG SCH (20:04)
[2021-06-29 20:23] VITALS: BP 98/44
[2021-06-29] MEDS ORDERED: DEXTROSE 50%-WATER 50 ML DISP.SYRIN IV ONE (23:49)
[2021-06-29 23:51] VITALS: BP 112/53
[2021-06-30] MEDS: IPRATROPIUM 0.5 MG/2.5 ML INH IH SCH ×5 (00:12→23:50)
[2021-06-30] MEDS: HYDROXYZINE HCL 10MG/5ML SYRUP 5ML BOTTLE PEG SCH ×3 (01:32→18:31)
[2021-06-30] MEDS: ACETAMINOPHEN WITH CODEINE 1 TAB TAB PO PRN (01:58)
[2021-06-30 03:56] VITALS: BP 131/59
[2021-06-30] MEDS: AZTREONAM 2 GM VIAL IVP SCH ×3 (06:08→20:21)
[2021-06-30] MEDS: METRONIDAZOLE 500MG/100ML BAG 100 ML IVPB SCH ×3 (06:08→20:18)
[2021-06-30] MEDS: BUDESONIDE 0.5 MG/2 ML INH IH SCH ×2 (06:13→18:30)
[2021-06-30 06:45] LABS: BASOPHILS % (AUTO) 0.4 % (0.0-5.0); EOSINOPHILS % (AUTO) 1.3 % (0.0-8.0); HEMATOCRIT 35.3 % (42-54); LYMPHOCYTES % (AUTO) 18.5 % (21.0-51.0); MEAN CORPUSCULAR HEMOGLOBIN 27.8 pg (27.0-33.0); MEAN CORPUSCULAR HGB CONC 32.6 g/dL (32.0-36.0); MEAN CORPUSCULAR VOLUME 85.5 fL (79-99); MONOCYTES % (AUTO) 12.9 % (3.0-13.0); NEUTROPHILS % (AUTO) 66.1 % (40.0-77.0); PLATELET COUNT (AUTO) 244 K/uL (130-400); RED BLOOD CELL COUNT(AUTO) 4.13 MIL/uL (4.50-6.20); RED CELL DISTRIBUTION WIDTH 15.2 % (11.0-15.5); WHITE BLOOD COUNT (AUTO) 11.1 K/uL (4.8-10.8)
[2021-06-30] MEDS: ACETAMINOPHEN 650 MG/20.3 ML UDCUP PEG PRN (06:58)
[2021-06-30 07:08] LABS: ALBUMIN 2.2 g/dL (3.5-5.0); BILIRUBIN,TOTAL 0.5 mg/dL (0.2-1.0); CREATININE 0.5 mg/dL (0.5-1.5); POTASSIUM 3.7 mmol/L (3.5-5.1); TOTAL PROTEIN, SERUM 6.4 g/dL (6.0-8.3)
[2021-06-30 08:00] VITALS: BP 118/78
[2021-06-30] MEDS: FAMOTIDINE 20MG VIAL IV SCH ×2 (10:39→20:15)
[2021-06-30] MEDS: VALPROIC ACID IV SCH ×2 (10:40→20:17)
[2021-06-30] MEDS: [UNRECOGNIZED DRUG - OTHER] IV SCH ×2 (10:40→20:17)
[2021-06-30] MEDS: PROPYLTHIOURACIL 50 MG TABLET PEG SCH (10:40)
[2021-06-30] MEDS: METOCLOPRAMIDE 5 MG TABLET PEG SCH ×2 (10:40→20:15)
[2021-06-30] MEDS: ENOXAPARIN SODIUM 30 MG/0.3 ML SQ SCH (10:41)
[2021-06-30] MEDS: POTASSIUM CHLORIDE 10% ELIXIR 20 MEQ/15 ML UDCUP PO SCH (10:41)
[2021-06-30 11:42] VITALS: BP 127/74
[2021-06-30] MEDS: LACTATED RINGERS 1000ML 1,000 ML IV SCH (12:10)
[2021-06-30 16:00] VITALS: BP 129/57
[2021-06-30 20:03] VITALS: BP 128/89
[2021-06-30] MEDS: MONTELUKAST SODIUM 10 MG TAB PEG SCH (20:15)
[2021-06-30 23:18] VITALS: BP 112/60
[2021-07-01] MEDS: HYDROXYZINE HCL 10MG/5ML SYRUP 5ML BOTTLE PEG SCH ×3 (01:56→18:24)
[2021-07-01] MEDS: LACTATED RINGERS 1000ML 1,000 ML IV SCH ×2 (01:56→10:02)
[2021-07-01 03:50] VITALS: BP 124/77
[2021-07-01] MEDS: METRONIDAZOLE 500MG/100ML BAG 100 ML IVPB SCH ×4 (05:38→22:14)
[2021-07-01] MEDS: AZTREONAM 2 GM VIAL IVP SCH ×4 (05:38→22:15)
[2021-07-01] MEDS: BUDESONIDE 0.5 MG/2 ML INH IH SCH ×2 (06:16→18:29)
[2021-07-01] MEDS: IPRATROPIUM 0.5 MG/2.5 ML INH IH SCH ×4 (06:16→23:07)
[2021-07-01 08:00] VITALS: BP 116/86
[2021-07-01] MEDS: METOCLOPRAMIDE 5 MG TABLET PEG SCH ×2 (09:52→21:11)
[2021-07-01] MEDS: PROPYLTHIOURACIL 50 MG TABLET PEG SCH (09:53)
[2021-07-01] MEDS: FAMOTIDINE 20MG VIAL IV SCH ×2 (09:53→21:11)
[2021-07-01] MEDS: ENOXAPARIN SODIUM 30 MG/0.3 ML SQ SCH (09:53)
[2021-07-01] MEDS: POTASSIUM CHLORIDE 10% ELIXIR 20 MEQ/15 ML UDCUP PO SCH (09:54)
[2021-07-01] MEDS: [UNRECOGNIZED DRUG - OTHER] IV SCH ×2 (11:57→21:10)
[2021-07-01] MEDS: VALPROIC ACID IV SCH ×2 (11:57→21:10)
[2021-07-01 12:00] VITALS: BP 121/64
[2021-07-01 16:00] VITALS: BP 132/78
[2021-07-01 20:00] VITALS: BP 96/53
[2021-07-01] MEDS ORDERED: DEXTROSE 5%-WATER 1,000 ML IV SCH (21:00)
[2021-07-01] MEDS: MONTELUKAST SODIUM 10 MG TAB PEG SCH (21:11)
[2021-07-02] VITALS: BP 114/61
[2021-07-02] MEDS: HYDROXYZINE HCL 10MG/5ML SYRUP 5ML BOTTLE PEG SCH ×3 (02:18→18:11)
[2021-07-02] MEDS ORDERED: GLUCAGON 1MG KIT 1 MG ML IM SCH (03:00)
[2021-07-02 04:00] VITALS: BP 104/64
[2021-07-02 04:58] LABS: BASOPHILS % (AUTO) 0.4 % (0.0-5.0); EOSINOPHILS % (AUTO) 0.4 % (0.0-8.0); HEMATOCRIT 39.7 % (42-54); LYMPHOCYTES % (AUTO) 9.4 % (21.0-51.0); MEAN CORPUSCULAR VOLUME 87.6 fL (79-99); MONOCYTES % (AUTO) 8.6 % (3.0-13.0); NEUTROPHILS % (AUTO) 80.4 % (40.0-77.0); PLATELET COUNT (AUTO) 335 K/uL (130-400); RED BLOOD CELL COUNT(AUTO) 4.53 MIL/uL (4.50-6.20); RED CELL DISTRIBUTION WIDTH 15.4 % (11.0-15.5)
[2021-07-02] MEDS: METRONIDAZOLE 500MG/100ML BAG 100 ML IVPB SCH ×2 (05:12→14:13)
[2021-07-02 05:31] LABS: ALBUMIN 2.4 g/dL (3.5-5.0); BILIRUBIN,TOTAL 0.4 mg/dL (0.2-1.0); CREATININE 0.5 mg/dL (0.5-1.5); MAGNESIUM 1.6 mg/dL (1.80-2.40); PHOSPHORUS 2.8 mg/dL (2.5-4.9); POTASSIUM 4.1 mmol/L (3.5-5.1); TOTAL PROTEIN, SERUM 7.2 g/dL (6.0-8.3)
[2021-07-02] MEDS: AZTREONAM 2 GM VIAL IVP SCH ×2 (05:37→14:13)
[2021-07-02 06:33] LABS: ERYTHROCYTE SEDIMENTATION RATE 34 MM/HR (0-15)
[2021-07-02] MEDS: IPRATROPIUM 0.5 MG/2.5 ML INH IH SCH ×4 (06:51→23:53)
[2021-07-02] MEDS: BUDESONIDE 0.5 MG/2 ML INH IH SCH ×2 (06:51→18:54)
[2021-07-02 07:41] VITALS: BP 106/63
[2021-07-02] MEDS: FAMOTIDINE 20MG VIAL IV SCH (10:50)
[2021-07-02] MEDS: ENOXAPARIN SODIUM 30 MG/0.3 ML SQ SCH (10:50)
[2021-07-02] MEDS: METOCLOPRAMIDE 5 MG TABLET PEG SCH (10:50)
[2021-07-02] MEDS: PROPYLTHIOURACIL 50 MG TABLET PEG SCH (10:50)
[2021-07-02] MEDS: POTASSIUM CHLORIDE 10% ELIXIR 20 MEQ/15 ML UDCUP PO SCH (10:50)
[2021-07-02] MEDS: [UNRECOGNIZED DRUG - OTHER] IV SCH (10:51)
[2021-07-02] MEDS: VALPROIC ACID IV SCH (10:51)
[2021-07-02 11:31] VITALS: BP 103/63
[2021-07-02 15:44] VITALS: BP 108/61
[2021-07-02] MEDS ORDERED: CEFP100S9 PO (18:03)
[2021-07-02] MEDS ORDERED: VALP250S23 PO (18:03)
[2021-07-02 19:00] VITALS: BP 96/57
[2021-07-02] MEDS ORDERED: METOPROLOL TARTRATE 25 MG TAB PO SCH (21:00)
[2021-10-04] MEDS ORDERED: BALSAM PERU TP (16:15)
[2021-10-04] MEDS ORDERED: CASTOR OIL TP (16:15)
[2021-10-04] MEDS ORDERED: TRYPSIN TP (16:15)
[2021-10-04] MEDS ORDERED: BACL5TAB PO (16:15)
[2021-10-04] MEDS ORDERED: METO50TA9 PO (16:15)
[2021-10-04] MEDS ORDERED: LEVE500S7 PEG (16:15)
== END 2021-07-03 01:05 | disposition home or self-care (01) | DRG 871 ==
LOC: EDH 13:19 → EDHIP 17:23 → 4DH 06-25 14:47 → 4CH 06-30 17:38
PROVIDERS: ADMIT Internal Medicine; ATTEND Internal Medicine
DX: A41.9 Sepsis, unspecified organism (principal); J96.21 Acute and chronic respiratory failure with hypoxia; R53.2 Functional quadriplegia; J15.5 Pneumonia due to Escherichia coli; R40.3 Persistent vegetative state; E44.0 Moderate protein-calorie malnutrition; Z68.1 Body mass index [BMI] 19.9 or less, adult; R47.01 Aphasia; Z20.822 Contact with and (suspected) exposure to COVID-19; G40.909 Epilepsy, unspecified, not intractable, without status epilepticus; E86.0 Dehydration; R74.8 Abnormal levels of other serum enzymes; E03.9 Hypothyroidism, unspecified; R53.81 Other malaise; F79 Unspecified intellectual disabilities; Z74.01 Bed confinement status; Z87.01 Personal history of pneumonia (recurrent); Z86.74 Personal history of sudden cardiac arrest; Z88.8 Allergy status to other drugs, medicaments and biological substances; Z93.1 Gastrostomy status; Z87.820 Personal history of traumatic brain injury; Z93.0 Tracheostomy status
CPT/HCPCS: 36415; 71045; 74176; 76705; 80053; 80164; 81001; 82150; 82728; 82948; 83605; 83690; 83735; 84100; 84145; 84478; 85025; 85378; 85651; 86140; 87040; 87071; 87077; 87186; 87205; 87635; 87804; 94640; 94664; G0378; J1200; J1610; J1650; J1956; J2020; J2060; J2405; J2543; J3370; J3490; J7050; J7070; J7120; J7608; Q9963

== ENCOUNTER 2021-07-28 16:32 | Emergency (ER) | payer BC, MEDICAID ==
[~2021-07-28] VITALS: Ht 170.2 cm; Wt 45.4 kg
[~2021-07-28 16:32] MED LIST changes: +ACET1030H IH; -ACET1030H PO; +CALC1SOL2 PEG; +CEFP100S9 PO; +CETI-89 PEG; +FERR324T9 PO; +FOLI0.8T2 PO; +FOLI1 PO; -LEVO250S3 PO; +NYST15CR2 TP; +OMEP20CA12 PO; +TYL3B PO; +VALP250S23 PO; -VALP250S5 PEG; +VIT C PEG; +ZINC TP
[2021-07-28] MEDS ORDERED: DIATR MEGLU/DIATRIZOATE SODIUM 30 ML BOTTLE ONE (17:49)
[2021-07-28 19:25] VITALS: BP 115/54
== END 2021-07-28 20:05 | disposition home or self-care (01) ==
LOC: EDH 16:32
DX: Z43.1 Encounter for attention to gastrostomy (principal); Z88.1 Allergy status to other antibiotic agents; Z79.899 Other long term (current) drug therapy
CPT/HCPCS: 43762; 74018; 99284; Q9963